=== PATIENT | male | born 1965 | race Caucasian/White ===

== ENCOUNTER 2024-05-25 20:40 | Inpatient (IN) ==
[2024-05-25] MEDS: Lactated Ringers 1000 ml BAG 1,000 ML IV ONE (21:20)
[2024-05-25 21:32] LABS: INR 1.05 (0.85-1.14)
[2024-05-25 21:35] LABS: Hematocrit 38.5 % (38-53); Hemoglobin 12.6 g/dL (13.2-16.3); Mean Corpuscular Hemoglobin 34.3 pg (27-33); Mean Corpuscular Hgb Conc 32.6 g/dL (31-36); Mean Corpuscular Volume 105.3 fL (80-97); Red Blood Count 3.66 10^6/uL (4.06-5.63); Red Cell Distribution Width 18.2 % (12-17); White Blood Count 6.9 10^3/uL (3.6-10.2)
[2024-05-25 21:53] LABS: Albumin 3.9 g/dL (3.2-5.2); Albumin/Globulin Ratio 1.3 (1-3); Calcium 9.5 mg/dL (8.6-10.3); Creatinine, Serum 1.4 mg/dL (0.67-1.17); Globulin 2.9 g/dL (2-4); Potassium 3.9 mmol/L (3.5-5.0); Total Bilirubin 1.8 mg/dL (0.2-1.0); Total Protein 6.8 g/dL (6.4-8.9); eGFR CKD-EPI 58.3 (>60)
[2024-05-25 22:05] LABS: ABS Lymphocytes 0.5 10^3/uL (1.0-4.8); ABS Monocytes 0.7 10^3/uL (0.0-1.1); ABS Neutrophils 5.7 10^3/uL (1.5-7.6); ABS Nucleated RBC 0.01 10^3/ul; Lymphocyte % 7.2 %; Nucleated Red Blood Cells % 0.1 %/100WBC (0.0-0.8); Platelet Count 112 10^3/uL (150-450)
[2024-05-25 22:32] LABS: High Sensitivity Troponin 1 Hr 13 pg/mL (<20)
[2024-05-26] MEDS: Metoprolol Tartrate 5 mg VIAL 5 ml VIAL (1 mg/ml) IV ONE (01:10)
[2024-05-26 01:49] LABS: TSH Ultra Thyroid Stim Horm 2.88 mcIU/mL (0.34-5.60)
[2024-05-26 03:11] LABS: HDL Cholesterol 65.7 mg/dL; Magnesium 1.5 mg/dL (1.9-2.7)
[2024-05-26] MEDS: Thiamine 100 MG/ML 2 ml VIAL (200 mg) IM ONE (03:53)
[2024-05-26] MEDS: Magnesium Sulfate 2 gm BAG 2 GM/50 ML BAG IVPB ONE (04:24)
[2024-05-26 04:44] LABS: Urine Appearance No Cx Turbid (Clear); Urine Bilirubin No Culture Negative (Negative); Urine Blood No Culture Trace (Negative); Urine Color No Culture Yellow; Urine Glucose No Culture Negative (Negative); Urine Ketones No Culture 1+ (Negative); Urine Leukocytes No Culture 500 (3+) Leu/uL (Negative); Urine Nitrite No Culture Negative (Negative); Urine Protein No Culture Trace (Negative); Urine Specific Gravity No Cx 1.016 (1.002-1.030); Urine Urobilinogen No Cx Negative (Negative); Urine pH No Culture 5.5 (5.0-8.0)
[2024-05-26 04:53] LABS: Folate 3.09 ng/mL (5.90-24.80)
[2024-05-26] MEDS ORDERED: Dextrose 50% Syringe 50 ml 25 GM/50 ML SYRINGE IV PUSH PRN (05:12)
[2024-05-26 06:14] LABS: Ur Squamous Epithelial No Cx Present /HPF (Absent); Urine Bacteria No Culture Absent /HPF (Absent); Urine Hyaline Casts No Culture Present /HPF (Absent); Urine Red Blood Cell No Cult Trace(0-2/hpf) /HPF (0-Trace); Urine White Blood Cell No Cult 3+(>20/hpf) /HPF (0-Trace)
[2024-05-26 07:00] LABS: Albumin 3.6 g/dL (3.2-5.2); Albumin/Globulin Ratio 1.3 (1-3); Creatinine, Serum 1.11 mg/dL (0.67-1.17); Globulin 2.7 g/dL (2-4); Magnesium 2.1 mg/dL (1.9-2.7); Potassium 3.5 mmol/L (3.5-5.0); Total Bilirubin 1.8 mg/dL (0.2-1.0); Total Protein 6.3 g/dL (6.4-8.9)
[2024-05-26 07:29] LABS: ABS Lymphocytes 0.8 10^3/uL (1.0-4.8); ABS Monocytes 0.9 10^3/uL (0.0-1.1); ABS Neutrophils 5.1 10^3/uL (1.5-7.6); Eosinophil % 0.2 %; Hematocrit 36.3 % (38-53); Hemoglobin 12.2 g/dL (13.2-16.3); Lymphocyte % 11.7 %; Mean Corpuscular Hgb Conc 33.6 g/dL (31-36); Mean Corpuscular Volume 104.1 fL (80-97); Mean Platelet Volume 7.8 fL (7.5-11.2); Nucleated Red Blood Cells % 0.1 %/100WBC (0.0-0.8); Platelet Count 90 10^3/uL (150-450); Red Blood Count 3.48 10^6/uL (4.06-5.63); Red Cell Distribution Width 17.4 % (12-17); White Blood Count 6.9 10^3/uL (3.6-10.2)
[2024-05-26] MEDS: Multivitamins/Minerals TAB PO SCH (09:05)
[2024-05-26] MEDS: Potassium Chlor 20 meq TAB.ER PO ONE (10:59)
[2024-05-26] MEDS: KCL 10 MEQ/50 ML IVPREMIX 10 MEQ/50 ML BAG IV SCH (11:01)
[2024-05-26] MEDS: Metoprolol Tartrate 5 mg VIAL 5 ml VIAL (1 mg/ml) IV PRN (11:31)
[2024-05-26] MEDS: Furosemide 40 mg/4 ml IV VIAL IV SLOW PU ONE (15:59)
[2024-05-26] MEDS ORDERED: Albuterol 2.5mg/3 ml (0.083%) NEB.SOLN INH PRN (17:50)
[2024-05-26] MEDS: Albuterol 2.5mg/3 ml (0.083%) NEB.SOLN INH ONE (19:10)
[2024-05-27 06:17] LABS: Hematocrit 37.8 % (38-53); Hemoglobin 12.5 g/dL (13.2-16.3); Mean Corpuscular Hemoglobin 34.6 pg (27-33); Mean Corpuscular Hgb Conc 33.1 g/dL (31-36); Mean Corpuscular Volume 104.3 fL (80-97); Mean Platelet Volume 8.2 fL (7.5-11.2); Platelet Count 84 10^3/uL (150-450); Red Blood Count 3.62 10^6/uL (4.06-5.63); Red Cell Distribution Width 17.9 % (12-17); White Blood Count 6.7 10^3/uL (3.6-10.2)
[2024-05-27 06:21] LABS: Calcium 9.3 mg/dL (8.6-10.3); Creatinine, Serum 1.17 mg/dL (0.67-1.17); Magnesium 1.6 mg/dL (1.9-2.7); Potassium 3.5 mmol/L (3.5-5.0); eGFR CKD-EPI 72.3 (>60)
[2024-05-27] MEDS: Potassium Chlor 20 meq TAB.ER PO ONE (09:12)
[2024-05-27] MEDS: Magnesium Sulfate 2 gm BAG 2 GM/50 ML BAG IVPB ONE ×2 (09:13→10:21)
[2024-05-27] MEDS: Magnesium Sulf 4 GM/100 ML IV 4,000 MG/100 ML BAG IVPB ONE (09:42)
[2024-05-27] MEDS: Metoprolol Tartrate 5 mg VIAL 5 ml VIAL (1 mg/ml) IV PRN (10:08)
[2024-05-27] MEDS: KCL 10 MEQ/50 ML IVPREMIX 10 MEQ/50 ML BAG IV SCH (10:09)
[2024-05-27] MEDS: Furosemide 40 mg/4 ml IV VIAL IV SLOW PU ONE (12:18)
[2024-05-27] MEDS: Digoxin IV 0.5 MG/2 ML AMP (0.25 MG/ML) IV SLOW PU ONE (14:50)
[2024-05-27] MEDS ORDERED: Digoxin IV 0.5 MG/2 ML AMP (0.25 MG/ML) IV SLOW PU PRN ×2 (16:05→16:08)
[2024-05-28 06:45] LABS: Digoxin 0.7 ng/ml (0.8-2.0)
[2024-05-28 06:54] LABS: Calcium 8.8 mg/dL (8.6-10.3); Creatinine, Serum 1.2 mg/dL (0.67-1.17); Magnesium 1.9 mg/dL (1.9-2.7); Potassium 3.9 mmol/L (3.5-5.0); eGFR CKD-EPI 70.1 (>60)
[2024-05-28 08:12] LABS: ABS Lymphocytes 1.3 10^3/uL (1.0-4.8); ABS Monocytes 0.7 10^3/uL (0.0-1.1); ABS Neutrophils 5.1 10^3/uL (1.5-7.6); Eosinophil % 0.6 %; Hematocrit 36.7 % (38-53); Hemoglobin 12.2 g/dL (13.2-16.3); Lymphocyte % 17.8 %; Mean Corpuscular Hemoglobin 35.3 pg (27-33); Mean Corpuscular Hgb Conc 33.3 g/dL (31-36); Mean Corpuscular Volume 105.8 fL (80-97); Mean Platelet Volume 8.5 fL (7.5-11.2); Platelet Count 72 10^3/uL (150-450); Red Blood Count 3.47 10^6/uL (4.06-5.63); Red Cell Distribution Width 17.8 % (12-17); White Blood Count 7.2 10^3/uL (3.6-10.2)
[2024-05-28] MEDS: Digoxin IV 0.5 MG/2 ML AMP (0.25 MG/ML) IV SLOW PU SCH (09:39)
[2024-05-28] MEDS: Potassium Chlor 20 meq TAB.ER PO ONE (09:39)
[2024-05-28] MEDS: Magnesium Sulfate 2 gm BAG 2 GM/50 ML BAG IVPB ONE (09:40)
[2024-05-28] MEDS ORDERED: Sulfur Hexaflouride MICROSPHR 25 MG VIAL ONE (10:24)
[2024-05-29 07:10] LABS: Hematocrit 37.7 % (38-53); Hemoglobin 12.4 g/dL (13.2-16.3); Mean Platelet Volume 8.2 fL (7.5-11.2); Platelet Count 84 10^3/uL (150-450); Red Blood Count 3.55 10^6/uL (4.06-5.63); Red Cell Distribution Width 17.8 % (12-17); White Blood Count 5.9 10^3/uL (3.6-10.2)
[2024-05-29 07:31] LABS: Calcium 8.7 mg/dL (8.6-10.3); Creatinine, Serum 1.02 mg/dL (0.67-1.17); Potassium 3.7 mmol/L (3.5-5.0); eGFR CKD-EPI 85.2 (>60)
[2024-05-29] MEDS ORDERED: guaiFENesin DM SUGAR FREE 100 MG/10 MG 5 ML UDC PO PRN (08:03)
[2024-05-29] MEDS ORDERED: guaiFENesin/CODIENE 100mg/10mg 5 ML UDC PO PRN ×2 (08:22→08:54)
[2024-05-29] MEDS: Potassium EFFERVES 25 meq TAB PO ONE (09:17)
[2024-05-30] MEDS: Furosemide 20 mg/2 ml IV VIAL IV SLOW PU ONE (06:32)
[2024-05-30 07:02] LABS: Calcium 9.5 mg/dL (8.6-10.3); Creatinine, Serum 1.08 mg/dL (0.67-1.17); Potassium 4.5 mmol/L (3.5-5.0); eGFR CKD-EPI 79.5 (>60)
[2024-05-30 07:47] LABS: ABS Eosinophils 0.1 10^3/uL (0.0-0.5); ABS Lymphocytes 1.2 10^3/uL (1.0-4.8); ABS Monocytes 0.8 10^3/uL (0.0-1.1); ABS Neutrophils 3.7 10^3/uL (1.5-7.6); ABS Nucleated RBC 0.01 10^3/ul; Eosinophil % 1.9 %; Hematocrit 41.8 % (38-53); Hemoglobin 13.8 g/dL (13.2-16.3); Lymphocyte % 20.8 %; Mean Corpuscular Hemoglobin 34.7 pg (27-33); Mean Corpuscular Volume 105.1 fL (80-97); Mean Platelet Volume 8.3 fL (7.5-11.2); Nucleated Red Blood Cells % 0.2 %/100WBC (0.0-0.8); Platelet Count 120 10^3/uL (150-450); Red Blood Count 3.98 10^6/uL (4.06-5.63); Red Cell Distribution Width 17.7 % (12-17); White Blood Count 5.9 10^3/uL (3.6-10.2)
[2024-05-30] MEDS: Albuterol/Ipratropium NEB.SOL (2.5/0.5 MG) 3 ML NEB.SOLN INH PRN (08:06)
[2024-05-30] MEDS: Metoprolol Succinate XL 200 mg TAB PO SCH (21:14)
[2024-05-31 06:48] LABS: ALT 21 U/L (7-52); Albumin 3.5 g/dL (3.2-5.2); Albumin/Globulin Ratio 1.1 (1-3); Alkaline Phosphatase 68 U/L (35-149); Anion Gap 13 mmol/L (2-16); Blood Urea Nitrogen 24 mg/dL (6-24); CO2 Carbon Dioxide 22 mmol/L (22-32); Calcium 9.1 mg/dL (8.6-10.3); Chloride 105 mmol/L (101-111); Creatinine, Serum 1.12 mg/dL (0.67-1.17); Globulin 3.2 g/dL (2-4); Glucose 91 mg/dL (70-100); Sodium 140 mmol/L (135-145); Total Bilirubin 1.8 mg/dL (0.2-1.0); Total Protein 6.7 g/dL (6.4-8.9); eGFR CKD-EPI 76.1 (>60)
[2024-05-31 08:22] LABS: Magnesium 1.8 mg/dL (1.9-2.7); Phosphorus 4.7 mg/dL (2.5-5.0)
[2024-05-31] MEDS: Magnesium Sulfate 2 gm BAG 2 GM/50 ML BAG IVPB ONE (10:00)
[2024-06-01 06:42] LABS: Calcium 9.1 mg/dL (8.6-10.3); Creatinine, Serum 1.24 mg/dL (0.67-1.17); Magnesium 2.1 mg/dL (1.9-2.7); Potassium 4.2 mmol/L (3.5-5.0); eGFR CKD-EPI 67.4 (>60)
[2024-06-01] MEDS: Metoprolol Succinate XL 200 mg TAB PO SCH (13:42)
[2024-06-02 06:20] LABS: ABS Basophils 0.1 10^3/uL (0.0-0.1); ABS Eosinophils 0.1 10^3/uL (0.0-0.5); ABS Lymphocytes 1.1 10^3/uL (1.0-4.8); ABS Monocytes 0.9 10^3/uL (0.0-1.1); ABS Neutrophils 5.1 10^3/uL (1.5-7.6); ABS Nucleated RBC 0.02 10^3/ul; Eosinophil % 1.2 %; Hematocrit 41.3 % (38-53); Hemoglobin 13.6 g/dL (13.2-16.3); Lymphocyte % 14.6 %; Mean Corpuscular Hemoglobin 34.9 pg (27-33); Mean Corpuscular Hgb Conc 32.9 g/dL (31-36); Mean Corpuscular Volume 105.9 fL (80-97); Mean Platelet Volume 8.6 fL (7.5-11.2); Nucleated Red Blood Cells % 0.2 %/100WBC (0.0-0.8); Platelet Count 171 10^3/uL (150-450); Red Cell Distribution Width 18.2 % (12-17); White Blood Count 7.3 10^3/uL (3.6-10.2)
[2024-06-02 06:26] LABS: Calcium 9.4 mg/dL (8.6-10.3); Creatinine, Serum 1.21 mg/dL (0.67-1.17); Potassium 3.9 mmol/L (3.5-5.0); eGFR CKD-EPI 69.4 (>60)
[2024-06-02] MEDS: Potassium Chlor 20 meq TAB.ER PO ONE (10:04)
[2024-06-02 14:29] VITALS: BP 92/51
== END 2024-06-02 15:58 | disposition home or self-care (01) | DRG 194 ==
LOC: ED 20:40 → EDHOLD 05-26 02:17 → SUATTDRO 05-26 02:17 → MEDTELE 05-26 14:52
PROVIDERS: ADMIT Internal Medicine; ATTEND Internal Medicine